=== PATIENT | female | born 1965 | race Caucasian/White ===

== ENCOUNTER 2017-03-01 19:17 | Emergency (ER) | payer OTHER ==
[2017-03-01 19:23] VITALS: BP 138/72; PULSE 58; TEMP 97.5; BMI 27.4
[2017-03-01] MEDS ORDERED: ONDANSETRON *ODT* 4 MG TABLET SL ONE (20:18)
[2017-03-01] MEDS ORDERED: ONDANSETRON *ODT* 4 MG TABLET ONE (20:19)
--- NOTE | 2017-03-01 20:24 | PDOC ---
History of Present Illness - General Chief Complaint: Redness To Affected Area Stated Complaint: BITE Time Seen by Provider: 03/01/17 19:51 History Source: Patient Exam Limitations: No Limitations - History of Present Illness Initial Comments: 03/01/17 20:18 51 yr female with history of SLE, seizures c/o 2 spider bites to left lower ankle noticed this am. pt states she vomited twice today feels nausea. no fever . Timing/Duration: reports: this morning Severity: Yes: mild Location: reports: extremities (left posterior ankle ) Past History - Past Medical History Allergies/Adverse Reactions: Allergies Allergy/AdvReac Type Severity Reaction Status Date / Time No Known Allergies Allergy Verified 03/01/17 19:20 Home Medications: Ambulatory Orders Pramipexole Di-HCl [Mirapex] 1 tab PO HS 12/21/16 Topiramate [Topamax] 75 mg PO BID 12/21/16 Ondansetron [Zofran Odt -] 4 mg SL TID PRN #12 od.tablet 03/01/17 Anemia: Yes (chronic) Cancer: Yes (cervical) Seizures: Yes (partial absence siezures) Other medical history: lupus, ankylosing spondylitis - Psycho/Social/Smoking Cessation Hx Suicidal Ideation: No Smoking History: Never smoked Have you smoked in the past 12 months: No Review of Systems - Review of Systems Able to Perform ROS?: Yes Is the patient limited Khmer proficient: No Constitutional: No: Symptoms Reported HEENTM: No: Symptoms Reported Respiratory: No: Symptoms reported Cardiac (ROS): No: Symptoms Reported ABD/GI: No: Symptoms Reported : No: Symptoms Reported Musculoskeletal: No: Symptoms Reported Integumentary: Yes: See HPI *Physical Exam - Vital Signs Last Vital Signs Temp Pulse Resp BP Pulse Ox 97.5 F L 58 L 18 138/72 99 03/01/17 19:20 03/01/17 19:20 03/01/17 19:20 03/01/17 19:20 03/01/17 19:20 - Physical Exam General Appearance: Yes: Nourished, Appropriately Dressed HEENT: positive: EOMI, NAHID Neck: negative: Tender Respiratory/Chest: positive: Lungs Clear, Normal Breath Sounds Cardiovascular: positive: Regular Rhythm, Regular Rate Musculoskeletal: positive: Normal Inspection Extremity: positive: Normal Capillary Refill, Normal Inspection, Normal Range of Motion Integumentary: positive: Normal Color, Dry, Warm, Other (left lower leg posterior ankle with 2 maculopapular raised 1cm in diameter with surrounding erythema, hard center, no drainagae.) Neurologic: positive: Fully Oriented, Alert, Normal Mood/Affect, Normal Response , Motor Strength 5/5 Medical Decision Making - Medical Decision Making 03/01/17 20:21 cc: spider bites nausea and vomit x2 no fever no chills no streaking will give zofran, cool compresses to the bite *DC/Admit/Observation/Transfer Diagnosis at time of Disposition: Spider bite allergy, current reaction Qualifiers: Encounter type: initial encounter Injury intent: undetermined intent Qualified Code(s): T63.304A - Toxic effect of unspecified spider venom, undetermined, initial encounter - Discharge Dispostion Disposition: HOME Condition at time of disposition: Good - Prescriptions Prescriptions: Ondansetron [Zofran Odt -] 4 mg SL TID PRN #12 od.tablet PRN Reason: Nausea And/Or Vomiting - Patient Instructions Additional Instructions: apply cool compresses every 2hrs for 15-20 minutes to the bites take zofran as directed for nausea or vomiting apply a topical benadryl cream to the bites with a topical hydrocortisone cream three times a day to help with swelling,. pain and itching follow with your doctor in 2-3 days for follow up
== END 2017-03-01 20:36 | disposition home or self-care (01) ==
LOC: JERFT 19:17
DX: T63.304A Toxic effect of unspecified spider venom, undetermined, initial encounter (principal); X58.XXXA Exposure to other specified factors, initial encounter; Y93.89 Activity, other specified; Y92.9 Unspecified place or not applicable; M32.9 Systemic lupus erythematosus, unspecified; Z85.41 Personal history of malignant neoplasm of cervix uteri
CPT/HCPCS: 99281-25

== ENCOUNTER 2017-09-02 17:40 | Emergency (ER) | payer OTHER ==
[2017-09-02 18:30] VITALS: BP 137/67; PULSE 56; TEMP 97.7; BMI 28.2
--- NOTE | 2017-09-02 19:10 | PDOC ---
History of Present Illness - General Chief Complaint: Seizure Stated Complaint: SEIZURE Time Seen by Provider: 09/02/17 18:30 - History of Present Illness Initial Comments: 09/02/17 19:44 The patient is a 51 year old female with a history of absence seizures, Lupus who presents for evaluation following a seizure. The patient reports that she has been experiencing nausea, vomiting, and diarrhea over the past 3-4 days with her vomiting resolving yesterday evening. She notes that she was found today following a seizure which she feels was longer than normal as she notes she "lost" 45 minutes of time. She notes that she normally experiences an aura before her seizures, but did not experience one today. She does note that she usually has seizures once a week as well. Otherwise she denies fevers, chills, SOB, chest pain, abdominal pain, or changes with urination. Past History - Past Medical History Allergies/Adverse Reactions: Allergies Allergy/AdvReac Type Severity Reaction Status Date / Time No Known Allergies Allergy Verified 09/02/17 17:58 Home Medications: Ambulatory Orders Pramipexole Di-HCl [Mirapex] 0.25 tab PO HS 12/21/16 Topiramate [Topamax] 100 mg PO BID 12/21/16 Omeprazole Magnesium [Prilosec Otc] 40 mg PO HS 09/02/17 Ondansetron HCl [Zofran] 4 mg PO TID PRN #21 tablet 09/02/17 levETIRAcetam [Keppra -] 500 mg PO BID 09/02/17 Anemia: Yes (chronic) Cancer: Yes (cervical) CVA: No COPD: No Seizures: Yes (partial absence siezures) - Suicide/Smoking/Psychosocial Hx Smoking History: Never smoked Have you smoked in the past 12 months: No Information on smoking cessation initiated: No Hx Alcohol Use: No Drug/Substance Use Hx: No Substance Use Type: None Review of Systems - Review of Systems Comments:: 09/02/17 19:47 Constitutional: No fevers, chills, fatigue, malaise HEENT: No Rhinorrhea, nasal congestion, visual changes Cardiovascular: No chest pain, syncope, palpitations, lightheadedness Respiratory: No Cough, SOB, Hemoptysis, Gastrointestinal: Nausea, vomiting, diarrhea. No Abdominal pain, Constipation, Melena Genitourinary: No Dysuria, Frequency, Urgency, Hesitancy, Hematuria, Flank pain Musculoskeletal: No Myalgia, arthralgia Skin: No rashes, itching, bruising, pallor Neurologic: Seizure. No Headache, Dizziness, Numbness, Weakness, or Tingling Psychiatric: No Hallucinations. No SI or HI *Physical Exam - Vital Signs Last Vital Signs Temp Pulse Resp BP Pulse Ox 97.7 F 56 L 18 137/67 99 09/02/17 17:46 09/02/17 17:46 09/02/17 17:46 09/02/17 17:46 09/02/17 17:46 ED Treatment Course - LABORATORY CBC & Chemistry Diagram: 09/02/17 19:18 09/02/17 19:18 Medical Decision Making - Medical Decision Making 09/02/17 19:48 The patient is a 51 year old female with a history of absence seizures, Lupus who presents for evaluation following a seizure. Given the patient's recent illness and vomiting, it is likely the patient had a break through seizure due to either viral illness or lack of medication due to her vomiting. However, given that this seizure appeared to be somewhat different from her norm, we discussed the case with Dr. Silva who is covering for the patient's neurologist Dr. Gilman who has provided recs and is comfortable with outpatient follow up should the patient's workup be negative. We will obtain a cbc, cmp, lipase to evaluate for other possible etiologies and treat the patient with iv fluids, 1g iv keppra, and zofran. We will continue to monitor and reassess. 09/02/17 20:12 CBC, cmp, lipase are unremarkable. The patient appears clinically well at this time and we are comfortable discharging home with neurology follow up. We discussed the results and the plan with the patient as well as return precautions and the patient voiced understanding and is agreeable with the plan. *DC/Admit/Observation/Transfer Diagnosis at time of Disposition: Seizure - Discharge Dispostion Disposition: HOME Condition at time of disposition: Good Admit: No - Prescriptions Prescriptions: Ondansetron HCl [Zofran] 4 mg PO TID PRN #21 tablet PRN Reason: Nausea - Referrals Referrals: Rai Gilman MD [Staff Physician] - - Patient Instructions Printed Discharge Instructions: DI for Seizure Disorder -- Adult Additional Instructions: Please return to the ER if you experience concerning or worsening symptoms including recurrent seizures, fevers, difficulty breathing, or worsening pain. You were seen for evaluation following a seizure. Your lab results are normal here in the ER. It is likely your seizure was break through due to your recent illness. Please continue to take your home medications and we have sent a prescription for an anti-nausea medication to your pharmacy. Please call to schedule a follow up appointment with your Neurologist within 1- 3 days to discuss further management of your symptoms. - Post Discharge Activity
[2017-09-02] MEDS ORDERED: ONDANSETRON 4 MG/2 ML VIAL IVPUSH ONE (19:16)
[2017-09-02] MEDS ORDERED: levETIRAcetam 500 MG/5 ML INJECTION VIAL IVPB ONE ×2 (19:16→19:20)
[2017-09-02] MEDS ORDERED: ONDANSETRON 4 MG/2 ML VIAL ONE (19:20)
[2017-09-02 19:39] LABS: BASO % 0.6 % (0-2.0); EOS % 1.6 % (0-4.5); HEMATOCRIT 42.4 % (32.4-45.2); HEMOGLOBIN 14.1 GM/dL (10.7-15.3); LYMPH % 34.2 % (8-40); MCH 29.6 pg (25.7-33.7); MCHC 33.2 g/dl (32.0-36.0); MEAN CELL VOLUME 89.2 fl (80-96); MEAN PLT VOLUME 8.1 fl (7.5-11.1); MONO % 7.5 % (3.8-10.2); NEUT % 56.1 % (42.8-82.8); PLATELET COUNT 278 K/MM3 (134-434); RBC 4.76 M/mm3 (3.60-5.2); RDW 14.4 % (11.6-15.6); WHITE BLOOD COUNT 6.8 K/mm3 (4.0-10.0)
--- NOTE | 2017-09-02 19:47 | PDOC ---
Attending Attestation - HPI HPI: 09/02/17 20:04 The patient is a 51 year old female, with a significant past medical history of absence seizures, lupus, who presents to the emergency department for evaluation of a seizure. The patient reports she normally experiences seizures approx. once per week. However, the patient reports that today the seizure she had was longer than usual and states she lost approx. 45 minutes of time. The patient reports the seizure was unwitnessed and she was found on the floor. The patient reports she did not have an aura preceding the seizure which she normally experiences. She denies recent fevers or chills. She denies recent chest pain or shortness of breath. Allergies: NKA Neurologist: Dr. Gilman Documentation prepared by Stefan Byrne, acting as medical scientific liaison for Calista Anne DO. - Physicial Exam PE: 09/02/17 20:05 Constitutional: Awake, alert, oriented. No acute distress. Head: Normocephalic. Atraumatic Eyes: PERRL. EOMI. Conjunctivae are not pale. ENT: Mucous membranes are moist and intact. Posterior pharynx without exudates or erythema. Uvula midline. Neck: Supple. Full ROM. No lymphadenopathy. Cardiovascular: +Bradycardia. Regular rhythm. S1, S2 regular. Distal pulses are 2+ and symmetric. Pulmonary/Chest: No evidence of respiratory distress. Clear to auscultation bilaterally No wheezing, rales or rhonchi. Abdominal: Soft and non-distended. There is no tenderness. No rebound, guarding or rigidity. No organomegaly. No palpable masses. Good bowel sounds. Back: No CVA tenderness. Musculoskeletal: No edema. No cyanosis. No clubbing. Full range of motion in all extremities. Nocalf tenderness. Radial/pedal pulses are intact and 2+ bilaterally Skin: Skin is warm and dry. No petechiae. No purpura. Neurological: Alert and oriented to person, place, and time. Cranial nerves II -XII are grossly intact. 5/5 strength and sensation is intact. Normal speech. Psychiatric: Good eye contact. Normal interaction, affect and behavior. <Stefan Byrne - Last Filed: 09/02/17 20:04> - Resident Resident Name: Abdi Barahona - ED Attending Attestation I have performed the following: I have examined & evaluated the patient, The case was reviewed & discussed with the resident, I agree w/resident's findings & plan, Exceptions are as noted - Medical Decision Making 09/02/17 19:44 I, Dr. Calista Anne, DO, attest that this document has been prepared under my direction and personally reviewed by me in its entirety. I further attest, that it accurately reflects all work, treatment, procedures and medical decision -making performed by me. a/p: 51yo female with known seizure activity with seizure at home -recent viral gastroenteritis - n/v since wednesday -suspect decreased absorption of topamax and keppra -pt neuro intact, at baseline -follows with Dr. Gilman -topamax for migraines, keppra for seizures -will dose meds in ED -nausea control -will discuss with neuro -labs -ivf hydration -will monitor and reassess 09/02/17 20:31 pt feeling better no seizures in the ED no vomiting will give zofran Rx for home has appt with alyssa discussed all reasons to return to the ED labs reviewed and stable <Calista Anne - Last Filed: 09/02/17 20:34> Heart Score/ECG Review - ECG Intrepretation Comment:: 09/02/17 19:46 sinus jorge at 53, L axis deviation, nl interval, no acute st/t wave changes <Calista Anne - Last Filed: 09/02/17 20:34>
[2017-09-02 20:02] LABS: ALBUMIN 3.5 g/dl (3.4-5.0); ALK PHOS 80 U/L (45-117); ANION GAP 7 (8-16); BILIRUBIN,TOTAL 0.4 mg/dL (0.2-1.0); BLOOD UREA NITROGEN 11 mg/dL (7-18); CALCIUM 8.7 mg/dL (8.5-10.1); CHLORIDE 109 mmol/L (98-107); CO2 26 mmol/L (21-32); CREATININE 0.5 mg/dL (0.55-1.02); GLUCOSE,RANDOM 81 mg/dL (74-106); LIPASE 91 U/L (73-393); POTASSIUM 4.2 mmol/L (3.5-5.1); SGOT/AST 15 U/L (15-37); SGPT/ALT 21 U/L (12-78); SODIUM 142 mmol/L (136-145); TOT PROT 6.5 g/dl (6.4-8.2)
--- NOTE | 2017-09-04 12:17 | EKG ---
Test Reason : Blood Pressure : / mmHG Vent. Rate : 053 BPM Atrial Rate : 053 BPM P-R Int : 160 ms QRS Dur : 086 ms QT Int : 458 ms P-R-T Axes : 040 -31 011 degrees QTc Int : 429 ms SINUS BRADYCARDIA LEFT AXIS DEVIATION ABNORMAL ECG WHEN COMPARED WITH ECG OF 14-APR-2006 09:51, NO SIGNIFICANT CHANGE WAS FOUND Confirmed by ROOPA BACON MD ([id number]) on 09/04/2017 12:17:45 PM Referred By: Confirmed By:ROOPA BACON MD
== END 2017-09-02 20:48 | disposition home or self-care (01) ==
LOC: JER 17:40
PROC: 3E033GC Introduction of Other Therapeutic Substance into Peripheral Vein, Percutaneous Approach (ICD-10-PCS; principal; 2017-09-02)
DX: G40.A09 Absence epileptic syndrome, not intractable, without status epilepticus (principal); G40.109 Localization-related (focal) (partial) symptomatic epilepsy and epileptic syndromes with simple partial seizures, not intractable, without status epilepticus; M32.9 Systemic lupus erythematosus, unspecified
CPT/HCPCS: 36415; 80053; 83690; 85025; 93005; 93010; 99283-25

== ENCOUNTER 2017-09-05 12:26 | Emergency (ER) | payer OTHER ==
[2017-09-05 12:38] VITALS: BP 124/70; PULSE 99; TEMP 98.4; BMI 28.2
--- NOTE | 2017-09-05 15:08 | PDOC ---
History of Present Illness - General Chief Complaint: Sore Throat Stated Complaint: SORE THROAT/cough Time Seen by Provider: 09/05/17 14:57 History Source: Patient Exam Limitations: No Limitations - History of Present Illness Initial Comments: 09/05/17 15:03 Patient is here with complaints of bronchitis. Was seen here 2 days ago for seizure status post gastroenteritis and dehydration. States has been well since that time however woke up this morning with a moist cough, no fevers, and laryngitis. Timing/Duration: unsure Severity: mild Associated Symptoms: reports: denies symptoms, cough, loss of appetite, malaise. denies: fever/chills, headaches, nausea/vomiting Past History - Travel Traveled outside of the country in the last 30 days: No Close contact w/someone who was outside of country & ill: No - Past Medical History Allergies/Adverse Reactions: Allergies Allergy/AdvReac Type Severity Reaction Status Date / Time No Known Allergies Allergy Verified 09/05/17 12:39 Home Medications: Ambulatory Orders Pramipexole Di-HCl [Mirapex] 0.25 tab PO HS 12/21/16 Topiramate [Topamax] 100 mg PO BID 12/21/16 Omeprazole Magnesium [Prilosec Otc] 40 mg PO HS 09/02/17 levETIRAcetam [Keppra -] 500 mg PO BID 09/02/17 Azithromycin [Zithromax -] 250 mg PO UTDICT #6 tab 09/05/17 Anemia: Yes (chronic) Cancer: Yes (cervical) CVA: No COPD: No DVT: No Seizures: Yes (partial absence siezures) - Suicide/Smoking/Psychosocial Hx Smoking History: Never smoked Have you smoked in the past 12 months: No Information on smoking cessation initiated: No Hx Alcohol Use: No Drug/Substance Use Hx: No Substance Use Type: None Review of Systems - Review of Systems Able to Perform ROS?: Yes Is the patient limited Ethiopian proficient: Yes Constitutional: Yes: Symptoms Reported, See HPI, Malaise. No: Fever HEENTM: Yes: Symptoms Reported, Nose Congestion Respiratory: Yes: Symptoms reported, See HPI, Cough. No: Wheezing Cardiac (ROS): No: Symptoms Reported Integumentary: Yes: See HPI. No: Symptoms Reported Neurological: Yes: See HPI. No: Symptoms reported All Other Systems: Reviewed and Negative *Physical Exam - Vital Signs Last Vital Signs Temp Pulse Resp BP Pulse Ox 98.4 F 99 H 18 124/70 100 09/05/17 12:30 09/05/17 12:30 09/05/17 12:30 09/05/17 12:30 09/05/17 12:30 - Physical Exam General Appearance: Yes: Nourished, Appropriately Dressed, Apparent Distress, Mild Distress HEENT: positive: TMs Normal (congested), Pharynx Normal, Nasal Congestion, Rhinorrhea. negative: Tonsillar Exudate Neck: positive: Supple. negative: Tender, Lymphadenopathy (R), Lymphadenopathy (L) Respiratory/Chest: positive: Lungs Clear, Normal Breath Sounds. negative: Rhonchi, Wheezing Extremity: positive: Normal Capillary Refill, Normal Inspection, Normal Range of Motion Integumentary: positive: Dry, Warm, Pale Neurologic: positive: director of culture II-XII NML intact, Fully Oriented, Alert, Normal Mood/ Affect, Normal Response, Motor Strength /5 Medical Decision Making - Medical Decision Making 09/05/17 15:08 Laryngitis, probable viral in origin however due to patient's immunosuppression with her lupus, and seizure disorder will give a prophylactic Z-Balta and instructions to initiate/watch and wait for worsened in symptoms, high fevers, purulent drainage from nose or cough. *DC/Admit/Observation/Transfer Diagnosis at time of Disposition: Laryngitis - Discharge Dispostion Disposition: HOME Condition at time of disposition: Stable Admit: No - Referrals - Patient Instructions Printed Discharge Instructions: DI for Laryngitis Additional Instructions: Rest, drink lots of fluids: Teas, water, soups, Pedialyte Saltwater gargles Steamy showers/seem to face break up mucus Avoid contact with others until fevers and cough resolved Lots of handwashing and good hygiene Continue [id number] medications for symptomatic relief Tylenol or Motrin for fever and pain Followup with private physician in one to 2 days as needed Return to emergency department for worsened symptoms, fevers, dehydration - Post Discharge Activity Forms/Work/School Notes: Back to Work
== END 2017-09-05 15:13 | disposition home or self-care (01) ==
LOC: JERFT 12:26
DX: J04.0 Acute laryngitis (principal); D64.9 Anemia, unspecified; Z85.41 Personal history of malignant neoplasm of cervix uteri
CPT/HCPCS: 99281-25

== ENCOUNTER 2018-06-02 09:08 | Emergency (ER) | payer OTHER ==
[2018-06-02 09:27] VITALS: BP 152/61; PULSE 66; TEMP 97.5; BMI 27.4
[2018-06-02] MEDS ORDERED: SILVER SULFADIAZINE 1% TOP CREAM 50 GM JAR TP ONE ×2 (10:21→10:27)
[2018-06-02] MEDS ORDERED: DIPHTH,PERTUSS(ACELL),TET 0.5 ML DISP.SYRIN IM ONE (10:27)
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
== END 2018-06-02 10:46 | disposition home or self-care (01) ==
LOC: JERFT 09:08
PROC: 3E0234Z Introduction of Serum, Toxoid and Vaccine into Muscle, Percutaneous Approach (ICD-10-PCS; principal; 2018-06-02)
DX: T25.221A Burn of second degree of right foot, initial encounter (principal); X17.XXXA Contact with hot engines, machinery and tools, initial encounter; Y93.G1 Activity, food preparation and clean up; Y92.009 Unspecified place in unspecified non-institutional (private) residence as the place of occurrence of the external cause; F41.9 Anxiety disorder, unspecified; D64.89 Other specified anemias; Z85.41 Personal history of malignant neoplasm of cervix uteri
CPT/HCPCS: 90715; 99281-25

== ENCOUNTER 2018-08-03 13:48 | Emergency (ER) | payer SELFPAY ==
[2018-08-03] MEDS ORDERED: IBUPROFEN 400 MG TABLET (FP) PO ONE ×2 (13:59→14:08)
--- NOTE | 2018-08-03 13:59 | PDOC ---
Rapid Medical Evaluation Medical Evaluation: Allergies Allergy/AdvReac Type Severity Reaction Status Date / Time No Known Allergies Allergy Verified 10/29/17 13:22 I have performed a brief in-person evaluation of this patient. The patient presents with a chief complaint of: S/P tripped down 1 step of stair , twisting R ankle Pertinent physical exam findings: Mild swelling and TTP along lateral aspect of R foot I have ordered the following: Xray, Motrin The patient will proceed to the ED for further evaluation. 08/03/18 13:56 Discharge Disposition - Discharge Dispostion Condition at time of disposition: Stable - Referrals - Patient Instructions - Post Discharge Activity
[2018-08-03 14:09] VITALS: BP 147/87; PULSE 68; TEMP 97.7; BMI 30.9
--- NOTE | 2018-08-03 14:35 | PDOC ---
History of Present Illness - General Chief Complaint: Injury Stated Complaint: Injury Time Seen by Provider: 08/03/18 14:06 - History of Present Illness Initial Comments: 08/03/18 14:31 52-year-old female presents for evaluation of right foot pain. She describes an inversion supination-type injury while coming down the steps. She points to the superior lateral aspect of the right foot as the area of her discomfort. Past History - Past Medical History Allergies/Adverse Reactions: Allergies Allergy/AdvReac Type Severity Reaction Status Date / Time No Known Allergies Allergy Verified 10/29/17 13:22 Home Medications: Ambulatory Orders Pramipexole Di-HCl [Mirapex] 0.25 tab PO HS 12/21/16 Topiramate [Topamax] 100 mg PO BID 12/21/16 Omeprazole Magnesium [Prilosec Otc] 40 mg PO HS 09/02/17 levETIRAcetam [Keppra -] 500 mg PO BID 09/02/17 Paroxetine HCl [Paxil -] 10 mg PO DAILY 10/29/17 Collagenase Clostridium Hist. [Santyl] 1 applic TP DAILY #90 oint...g. 06/17/18 Anemia: Yes (chronic) Cancer: Yes (cervical) CVA: No COPD: No DVT: No Psychiatric Problems: Yes (anxiety, swallowing problem) Seizures: Yes (partial absence siezures) - Immunization History Immunization Up to Date: Yes - Suicide/Smoking/Psychosocial Hx Smoking History: Never smoked Have you smoked in the past 12 months: No Information on smoking cessation initiated: No Hx Alcohol Use: No Drug/Substance Use Hx: No Substance Use Type: None Review of Systems - Review of Systems Musculoskeletal: Yes: Joint Pain *Physical Exam - Vital Signs Last Vital Signs Temp Pulse Resp BP Pulse Ox 97.7 F 68 16 147/87 98 08/03/18 13:56 08/03/18 13:56 08/03/18 13:56 08/03/18 13:56 08/03/18 13:56 - Physical Exam Comments: 08/03/18 14:32 Right foot skin color and temperature are normal. There is mild swelling about the superior lateral aspect of the foot. There is no tenderness about the knee proximal fibula or along its distal coarse. No tenderness about the medial lateral malleolus mild tenderness about the lateral aspect of navicular no tenderness about the fifth metatarsal. No gross sensorimotor deficits full strength and range of motion of the ankle and toes. NVID Moderate Sedation - Procedure Monitoring Vital Signs: Procedure Monitoring Vital Signs Temperature 97.7 F 08/03/18 13:56 Pulse Rate 68 08/03/18 13:56 Respiratory Rate 16 08/03/18 13:56 Blood Pressure 147/87 08/03/18 13:56 O2 Sat by Pulse Oximetry (%) 98 08/03/18 13:56 ED Treatment Course - Medications Given in the ED: ED Medications Discontinued Medications Generic Name Dose Route Start Last Admin Trade Name Freq PRN Reason Stop Dose Admin Ibuprofen 800 mg 08/03/18 13:59 08/03/18 14:10 Motrin - PO 08/03/18 14:00 800 mg ONCE ONE Administration Medical Decision Making - Medical Decision Making 08/03/18 14:35 There appears to be a nondisplaced fracture at the lateral aspect of the navicular *DC/Admit/Observation/Transfer Diagnosis at time of Disposition: Navicular fracture, foot - Discharge Dispostion Disposition: HOME Condition at time of disposition: Stable Decision to Admit order: No - Referrals Referrals: Kush Chávez MD [Staff Physician] - - Patient Instructions Printed Discharge Instructions: Foot Fracture, DI for Foot Fracture Additional Instructions: Remain nonweightbearing with use of the Reynolds wrap and crutches and postop shoe. Return to the emergency room should symptoms worsen or go unresolved. Follow-up with orthopedic surgery in 2-3 days for further evaluation and treatment options. Tylenol as directed for pain. - Post Discharge Activity
== END 2018-08-03 14:48 | disposition home or self-care (01) ==
LOC: JERFT 13:48
DX: S92.251A Displaced fracture of navicular [scaphoid] of right foot, initial encounter for closed fracture (principal); W10.9XXA Fall (on) (from) unspecified stairs and steps, initial encounter; Y93.89 Activity, other specified; Y92.89 Other specified places as the place of occurrence of the external cause
CPT/HCPCS: 73610-TC-RT-FY; 73630-TC-RT-FY; 99281-25

== ENCOUNTER 2021-06-06 04:19 | Day surgery (SDC) | payer OTHER ==
[2021-06-04 13:41] VITALS: BMI 30.9
[2021-06-06] MEDS ORDERED: BUPIVACAINE HCL/PF 0.25% (2.5MG/ML) 10 ML VIAL ONE (07:19)
[2021-06-06] MEDS ORDERED: LIDOCAINE HCL/PF 1% SDV 5ML VIAL ONE (07:19)
[2021-06-06] MEDS ORDERED: DEXAMETHASONE SOD PHOSPHATE 10 MG/1 ML VIAL ONE (07:19)
[2021-06-06] MEDS ORDERED: BUPIVACAINE HCL/PF 0.5% (5MG/ML) 10 ML VIAL ONE (07:19)
[2021-06-06] MEDS ORDERED: BUPIVACAINE 0.75% IN DEXTROSE/PF 2ML AMPULE NR ONE (13:20)
[2021-06-06] MEDS ORDERED: LIDOCAINE HCL 1%, 10 MG/ML (20ML VIAL) NR ONE (13:20)
[2021-06-06] MEDS ORDERED: IOHEXOL 180 MG/1 ML ML IJ ONE (13:20)
[2021-06-06 14:12] VITALS: BP 143/69; PULSE 62; TEMP 97.7
== END 2021-06-06 14:05 | disposition home or self-care (01) ==
LOC: JASU-SURG 04:19
PROVIDERS: ATTEND Pain Medicine Pain Medicine
PROC: BR16YZZ Fluoroscopy of Lumbar Facet Joint(s) using Other Contrast (ICD-10-PCS; 2021-06-06)
PROC: 3E0T3BZ Introduction of Anesthetic Agent into Peripheral Nerves and Plexi, Percutaneous Approach (ICD-10-PCS; principal; 2021-06-06 14:00)
DX: M47.816 Spondylosis without myelopathy or radiculopathy, lumbar region (principal)
CPT/HCPCS: 76000-TC-FY; J1100

== ENCOUNTER 2021-09-02 04:31 | Day surgery (SDC) | payer OTHER ==
[2021-08-28 16:54] VITALS: BMI 30.9
[~2021-09-02 04:31] MED LIST: BUPIVACAINE HCL/PF 0.75% 10 ML VIAL NR ONE; IOHEXOL 180 MG/1 ML ML IJ ONE; LIDOCAINE 1% P/F 10 MG/ML VIAL INF ONE
[2021-09-02] MEDS ORDERED: LIDOCAINE 1% P/F 10 MG/ML VIAL INF ONE (09:12)
[2021-09-02] MEDS ORDERED: IOHEXOL 180 MG/1 ML ML IJ ONE (09:15)
[2021-09-02] MEDS ORDERED: BUPIVACAINE HCL/PF 0.75% 10 ML VIAL NR ONE (09:17)
[2021-09-02 10:02] VITALS: BP 158/83; PULSE 80; TEMP 97.3
== END 2021-09-02 10:11 | disposition home or self-care (01) ==
LOC: JASU-SURG 04:31
PROVIDERS: ATTEND Pain Medicine Pain Medicine
PROC: BR16YZZ Fluoroscopy of Lumbar Facet Joint(s) using Other Contrast (ICD-10-PCS; 2021-09-02)
PROC: 3E0T3BZ Introduction of Anesthetic Agent into Peripheral Nerves and Plexi, Percutaneous Approach (ICD-10-PCS; principal; 2021-09-02 08:30)
DX: M47.816 Spondylosis without myelopathy or radiculopathy, lumbar region (principal)
CPT/HCPCS: 76000-TC-FY

== ENCOUNTER 2021-09-25 04:19 | Day surgery (SDC) | payer OTHER ==
[2021-09-22 15:21] VITALS: BMI 34.0
[2021-09-25 10:03] VITALS: TEMP 97.6
[2021-09-25 11:12] VITALS: BP 140/88; PULSE 79
== END 2021-09-25 10:59 | disposition home or self-care (01) ==
LOC: JASU-ENDO 04:19
PROVIDERS: ATTEND Internal Medicine Gastroenterology
PROC: 0DB68ZX Excision of Stomach, Via Natural or Artificial Opening Endoscopic, Diagnostic (ICD-10-PCS; 2021-09-25)
PROC: 0DB28ZX Excision of Middle Esophagus, Via Natural or Artificial Opening Endoscopic, Diagnostic (ICD-10-PCS; 2021-09-25)
PROC: 0DB38ZX Excision of Lower Esophagus, Via Natural or Artificial Opening Endoscopic, Diagnostic (ICD-10-PCS; principal; 2021-09-25 09:30)
DX: K29.50 Unspecified chronic gastritis without bleeding (principal); K21.00 Gastro-esophageal reflux disease with esophagitis, without bleeding; K31.7 Polyp of stomach and duodenum
CPT/HCPCS: 88305-TC; 88342-TC

== ENCOUNTER 2021-10-24 04:14 | Day surgery (SDC) | payer OTHER ==
[2021-10-22 14:13] VITALS: BMI 32.9
[2021-10-24] MEDS ORDERED: LIDOCAINE HCL/PF 1% SDV 5ML VIAL ONE (07:11)
[2021-10-24] MEDS ORDERED: BUPIVACAINE HCL/PF 0.75% 10 ML VIAL ONE (07:11)
[2021-10-24] MEDS ORDERED: LIDOCAINE HCL/PF 2% SDV 5ML VIAL ONE ×2 (09:26→09:28)
[2021-10-24] MEDS ORDERED: LIDOCAINE HCL 1% PRESERVATIVE FREE - 30ML VIAL IJ ONE (09:29)
[2021-10-24] MEDS ORDERED: IOHEXOL 180 MG/1 ML ML IJ ONE ×2 (09:30→09:34)
[2021-10-24] MEDS ORDERED: BUPIVACAINE HCL/PF 0.75% 10 ML VIAL NR ONE ×2 (09:30→09:36)
[2021-10-24] MEDS ORDERED: LIDOCAINE HCL 2% (50ML VIAL) NR ONE ×2 (09:31→09:52)
[2021-10-24] MEDS ORDERED: DEXAMETHASONE SOD PHOSPHATE 10 MG/1 ML VIAL IVPUSH ONE ×2 (09:31→09:36)
[2021-10-24 13:24] VITALS: TEMP 98.9
[2021-10-24 13:26] VITALS: BP 130/72; PULSE 67
== END 2021-10-24 10:36 | disposition home or self-care (01) ==
LOC: JASU-SURG 04:14
PROVIDERS: ATTEND Pain Medicine Pain Medicine
PROC: 3E0T3TZ Introduction of Destructive Agent into Peripheral Nerves and Plexi, Percutaneous Approach (ICD-10-PCS; principal; 2021-10-24 09:00)
PROC: BR16YZZ Fluoroscopy of Lumbar Facet Joint(s) using Other Contrast (ICD-10-PCS; 2021-10-24 09:00)
DX: M47.816 Spondylosis without myelopathy or radiculopathy, lumbar region (principal)
CPT/HCPCS: 76000-TC-FY; J1100

== ENCOUNTER 2021-11-25 04:35 | Day surgery (SDC) | payer OTHER ==
[2021-11-20 12:43] VITALS: BMI 32.9
[2021-11-25] MEDS ORDERED: LIDOCAINE HCL 1% PRESERVATIVE FREE - 30ML VIAL IJ ONE (13:25)
[2021-11-25] MEDS ORDERED: LIDOCAINE HCL/PF 2% SDV 5ML VIAL SNB ONE (13:26)
[2021-11-25] MEDS ORDERED: DEXAMETHASONE SOD PHOSPHATE 4 MG/1 ML VIAL NR ONE (13:27)
[2021-11-25] MEDS ORDERED: BUPIVACAINE HCL/PF 0.75% 10 ML VIAL NR ONE (13:27)
[2021-11-25] MEDS ORDERED: IOHEXOL 180 MG/1 ML ML IJ ONE (13:28)
[2021-11-25 14:19] VITALS: TEMP 97
[2021-11-25 14:27] VITALS: BP 140/70; PULSE 55
== END 2021-11-25 14:10 | disposition home or self-care (01) ==
LOC: JASU-SURG 04:35
PROVIDERS: ATTEND Pain Medicine Pain Medicine
PROC: BR16YZZ Fluoroscopy of Lumbar Facet Joint(s) using Other Contrast (ICD-10-PCS; 2021-11-25)
PROC: 3E0T3TZ Introduction of Destructive Agent into Peripheral Nerves and Plexi, Percutaneous Approach (ICD-10-PCS; principal; 2021-11-25 14:00)
DX: M47.816 Spondylosis without myelopathy or radiculopathy, lumbar region (principal)
CPT/HCPCS: 76000-TC-FY

== ENCOUNTER 2021-12-11 04:18 | Day surgery (SDC) | payer OTHER ==
[2021-12-08 14:49] VITALS: BMI 32.9
[2021-12-11 09:04] VITALS: TEMP 97
[2021-12-11 09:48] VITALS: BP 134/68; PULSE 50
== END 2021-12-11 10:00 | disposition home or self-care (01) ==
LOC: JASU-ENDO 04:18
PROVIDERS: ATTEND Internal Medicine Gastroenterology
PROC: 0DBN8ZX Excision of Sigmoid Colon, Via Natural or Artificial Opening Endoscopic, Diagnostic (ICD-10-PCS; principal; 2021-12-11 08:00)
DX: Z12.11 Encounter for screening for malignant neoplasm of colon (principal); Z80.0 Family history of malignant neoplasm of digestive organs; D12.7 Benign neoplasm of rectosigmoid junction; K64.8 Other hemorrhoids
CPT/HCPCS: 88305-TC

== ENCOUNTER 2022-04-22 10:25 | Day surgery (SDC) | payer OTHER ==
[2022-04-20 18:46] VITALS: BMI 32.5
[2022-04-22] MEDS ORDERED: MIDAZOLAM HCL 2 MG/2 ML SINGLE DOSE VIAL ONE (12:12)
[2022-04-22] MEDS ORDERED: ROPIVACAINE HCL 0.5% 30ML VIAL ONE (12:13)
[2022-04-22] MEDS ORDERED: LIDOCAINE HCL/PF 2% SDV 5ML VIAL ONE (12:34)
[2022-04-22] MEDS ORDERED: ceFAZolin SODIUM 1 GM VIAL ONE (12:35)
[2022-04-22] MEDS ORDERED: DEXAMETHASONE SOD PHOSPHATE 4 MG/1 ML VIAL ONE (12:44)
[2022-04-22] MEDS ORDERED: ONDANSETRON 4 MG/2 ML VIAL ONE (12:44)
[2022-04-22] MEDS ORDERED: oxyCODONE HCL 5 MG TABLET PO PRN ×2 (13:05)
[2022-04-22] MEDS ORDERED: ACETAMINOPHEN 500 MG TABLET (FP) PO PRN (13:05)
[2022-04-22] MEDS ORDERED: LACTATED RINGERS SOLUTION 1,000 ML IV SCH (13:15)
[2022-04-22] MEDS ORDERED: FENTANYL CITRATE/PF 50 MCG/ML VIAL ONE (13:51)
[2022-04-22 15:12] VITALS: BP 144/80; PULSE 72; RESP 17; TEMP 97.6
== END 2022-04-22 15:13 | disposition home or self-care (01) ==
LOC: FASU 10:25
PROVIDERS: ATTEND Orthopaedic Surgery Hand Surgery
PROC: 0RQS0ZZ Repair Right Carpometacarpal Joint, Open Approach (ICD-10-PCS; principal; 2022-04-22 12:47)
DX: M18.11 Unilateral primary osteoarthritis of first carpometacarpal joint, right hand (principal)
CPT/HCPCS: 94760

== ENCOUNTER 2022-10-23 04:28 | Day surgery (SDC) | payer OTHER ==
[2022-10-21 14:47] VITALS: BMI 32.5
[~2022-10-23 04:28] MED LIST changes: -BUPIVACAINE HCL/PF 0.75% 10 ML VIAL NR ONE; -IOHEXOL 180 MG/1 ML ML IJ ONE; -LIDOCAINE 1% P/F 10 MG/ML VIAL INF ONE; +LIDOCAINE HCL 1%, 10 MG/ML (50 mL VIAL) NR ONE; +ceFAZolin SODIUM 1 GM VIAL IVPB ONE
[2022-10-23] MEDS ORDERED: PROPOFOL 20 ML ONE (07:10)
[2022-10-23] MEDS ORDERED: KETAMINE HCL 500 MG/10 ML VIAL ONE (07:10)
[2022-10-23] MEDS ORDERED: MIDAZOLAM HCL 2 MG/2 ML SINGLE DOSE VIAL ONE (07:10)
[2022-10-23] MEDS ORDERED: LIDOCAINE HCL 1%, 10 MG/ML (10ML VIAL) MDV ONE (07:25)
[2022-10-23] MEDS ORDERED: BUPIVACAINE HCL/PF 0.5% (5MG/ML) 10 ML VIAL ONE (07:26)
[2022-10-23] MEDS ORDERED: ceFAZolin SODIUM 1 GM VIAL IVPB ONE (07:42)
[2022-10-23] MEDS ORDERED: LIDOCAINE HCL 1%, 10 MG/ML (50 mL VIAL) INF ONE (07:43)
[2022-10-23] MEDS ORDERED: BUPIVACAINE HCL/PF 0.5% (5MG/ML) 10 ML VIAL IJ ONE (07:43)
[2022-10-23] MEDS ORDERED: GENTAMICIN SO4 80 MG/2 ML VIAL IVPB ONE (07:50)
[2022-10-23] MEDS ORDERED: GENTAMICIN SO4 80 MG/2 ML VIAL ONE (07:57)
[2022-10-23 08:24] VITALS: RESP 20
[2022-10-23 12:16] VITALS: BP 147/65; PULSE 75; TEMP 98
== END 2022-10-23 10:50 | disposition home or self-care (01) ==
LOC: JASU-SURG 04:28
PROVIDERS: ATTEND Podiatrist
PROC: 0QBQ0ZZ Excision of Right Toe Phalanx, Open Approach (ICD-10-PCS; 2022-10-23)
PROC: 0HDRXZZ Extraction of Toe Nail, External Approach (ICD-10-PCS; principal; 2022-10-23 07:30)
DX: M89.8X7 Other specified disorders of bone, ankle and foot (principal); L60.0 Ingrowing nail; M77.51 Other enthesopathy of right foot and ankle
CPT/HCPCS: 73630-TC-RT-FY; 88304-TC; 88305-TC; 88311-TC; 88312-TC

== ENCOUNTER 2023-05-06 14:22 | Emergency (ER) | payer OTHER ==
[2023-05-06 14:41] VITALS: BMI 32.5
[2023-05-06 15:55] LABS: BASO % 0.8 % (0-2.0); EOS % 1.2 % (0-4.5); HEMATOCRIT 38.8 % (32.4-45.2); HEMOGLOBIN 13.3 GM/dL (10.7-15.3); MCH 29.8 pg (25.7-33.7); MCHC 34.4 g/dl (32.0-36.0); MEAN CELL VOLUME 86.5 fl (80-96); MEAN PLT VOLUME 7.4 fl (7.5-11.1); MONO % 8.7 % (3.8-10.2); NEUT % 46.3 % (42.8-82.8); PLATELET COUNT 329 10^3/uL (134-434); RBC 4.48 M/mm3 (3.60-5.2); WHITE BLOOD COUNT 6.6 K/mm3 (4.0-10.0)
[2023-05-06 16:19] LABS: POTASSIUM 4.1 mmol/L (3.5-5.1)
[2023-05-06 16:21] LABS: CALCIUM 9.1 mg/dL (8.5-10.1)
[2023-05-06 16:22] LABS: ALBUMIN 3.6 g/dl (3.4-5.0); BLOOD UREA NITROGEN 14.4 mg/dL (7-18)
[2023-05-06 16:25] LABS: CREATININE 0.7 mg/dL (0.55-1.3)
[2023-05-06 16:26] LABS: BILIRUBIN,TOTAL 0.4 mg/dL (0.2-1)
[2023-05-06 17:08] VITALS: BP 124/72; PULSE 80; RESP 20; TEMP 98
== END 2023-05-06 17:08 | disposition home or self-care (01) ==
LOC: JER 14:22
DX: L03.031 Cellulitis of right toe (principal); M79.674 Pain in right toe(s); J00 Acute nasopharyngitis [common cold]; L53.9 Erythematous condition, unspecified
CPT/HCPCS: 36415; 73630-TC-RT-FY; 80053; 85025; 99284-25

== ENCOUNTER 2023-06-15 05:17 | Day surgery (SDC) | payer OTHER ==
[2023-06-14 15:34] VITALS: BMI 32.5
[2023-06-15] MEDS ORDERED: LIDOCAINE HCL/PF 1% SDV 5ML VIAL ONE (07:20)
[2023-06-15] MEDS ORDERED: LIDOCAINE HCL/PF 2% SDV 5ML VIAL ONE (07:20)
[2023-06-15] MEDS ORDERED: BUPIVACAINE HCL/PF 0.75% 10 ML VIAL ONE (07:20)
[2023-06-15] MEDS ORDERED: DEXAMETHASONE SOD PHOSPHATE 10 MG/1 ML VIAL ONE (07:20)
[2023-06-15] MEDS ORDERED: DEXAMETHASONE SOD PHOSPHATE 10 MG/1 ML VIAL IVPUSH ONE (10:25)
[2023-06-15] MEDS ORDERED: LIDOCAINE HCL 1% PRESERVATIVE FREE - 30ML VIAL IJ ONE (10:25)
[2023-06-15] MEDS ORDERED: LIDOCAINE HCL/PF 2% SDV 5ML VIAL INF ONE (10:25)
[2023-06-15] MEDS ORDERED: BUPIVACAINE HCL/PF 0.75% 10 ML VIAL NR ONE (10:25)
[2023-06-15 11:20] VITALS: BP 130/80; PULSE 72; RESP 18; TEMP 97
[2023-06-15] MEDS ORDERED: ACETAMINOPHEN 500 MG TABLET (FP) PO PRN (17:36)
== END 2023-06-15 11:27 | disposition home or self-care (01) ==
LOC: JASU-SURG 05:17
PROVIDERS: ATTEND Pain Medicine Pain Medicine
PROC: 015B3ZZ Destruction of Lumbar Nerve, Percutaneous Approach (ICD-10-PCS; principal; 2023-06-15 10:30)
DX: M47.816 Spondylosis without myelopathy or radiculopathy, lumbar region (principal)
CPT/HCPCS: 76000-TC-FY; J1100

== ENCOUNTER 2023-07-27 04:36 | Day surgery (SDC) | payer OTHER ==
[2023-07-13 16:12] VITALS: BMI 32.5
[~2023-07-27 04:36] MED LIST changes: +ACETAMINOPHEN 500 MG TABLET (FP) PO PRN; -LIDOCAINE HCL 1%, 10 MG/ML (50 mL VIAL) NR ONE; -ceFAZolin SODIUM 1 GM VIAL IVPB ONE
[2023-07-27] MEDS ORDERED: TRIAMCINOLONE ACET 40MG/1ML VIAL ONE (07:22)
[2023-07-27] MEDS ORDERED: BUPIVACAINE HCL/PF 0.5% (5MG/ML) 10 ML VIAL ONE (07:22)
[2023-07-27] MEDS ORDERED: LIDOCAINE HCL/PF 1% SDV 5ML VIAL ONE (07:22)
[2023-07-27] MEDS ORDERED: ACETAMINOPHEN 500 MG TABLET (FP) PO PRN (11:38)
[2023-07-27] MEDS ORDERED: IOHEXOL 180 MG/1 ML ML IJ ONE (11:55)
[2023-07-27] MEDS ORDERED: TRIAMCINOLONE ACET 40MG/1ML VIAL IM ONE (11:55)
[2023-07-27] MEDS ORDERED: BUPIVACAINE HCL/PF 2.5 MG/ML - 30 ML VIAL IJ ONE (11:55)
[2023-07-27] MEDS ORDERED: LIDOCAINE 1% P/F 10 MG/ML VIAL INF ONE (11:55)
[2023-07-27 15:29] VITALS: BP 137/71; PULSE 55; RESP 18; TEMP 97.8
== END 2023-07-27 12:18 | disposition home or self-care (01) ==
LOC: JASU-SURG 04:36
PROVIDERS: ATTEND Pain Medicine Pain Medicine
PROC: 3E0U3BZ Introduction of Anesthetic Agent into Joints, Percutaneous Approach (ICD-10-PCS; 2023-07-27)
PROC: 3E0U33Z Introduction of Anti-inflammatory into Joints, Percutaneous Approach (ICD-10-PCS; principal; 2023-07-27 10:45)
DX: M16.11 Unilateral primary osteoarthritis, right hip (principal)
CPT/HCPCS: 76000-TC-FY

== ENCOUNTER 2024-03-07 06:47 | Day surgery (SDC) | payer OTHER ==
[2024-03-03 09:23] VITALS: BMI 33.5
[2024-03-07] MEDS ORDERED: BUPIVACAINE HCL/PF 0.25% (2.5MG/ML) 10 ML VIAL ONE (07:36)
[2024-03-07] MEDS ORDERED: MIDAZOLAM HCL 2 MG/2 ML SINGLE DOSE VIAL ONE (08:29)
[2024-03-07] MEDS ORDERED: PROPOFOL 40 ML ONE (08:29)
[2024-03-07] MEDS ORDERED: KETOROLAC TROMETHAMINE 30 MG/1 ML VIAL ONE (08:48)
[2024-03-07] MEDS ORDERED: ceFAZolin SODIUM 1 GM VIAL ONE (08:48)
[2024-03-07] MEDS ORDERED: ONDANSETRON 4 MG/2 ML VIAL ONE (08:48)
[2024-03-07] MEDS ORDERED: DEXAMETHASONE SOD PHOSPHATE 4 MG/1 ML VIAL ONE (08:48)
[2024-03-07] MEDS ORDERED: PROPOFOL 20 ML ONE (09:11)
[2024-03-07] MEDS ORDERED: oxyCODONE HCL 5 MG TABLET PO PRN (09:46)
[2024-03-07] MEDS ORDERED: PROMETHAZINE HCL 25 MG/1 ML VIAL IVPB PRN (09:46)
[2024-03-07] MEDS ORDERED: LACTATED RINGERS SOLUTION 1,000 ML IV SCH (10:00)
[2024-03-07] MEDS ORDERED: FENTANYL CITRATE/PF 50 MCG/ML VIAL ONE (10:11)
[2024-03-07 11:36] VITALS: RESP 19; TEMP 96.8
[2024-03-07 11:37] VITALS: BP 140/63; PULSE 68
== END 2024-03-07 11:40 | disposition home or self-care (01) ==
LOC: FASU 06:47
PROVIDERS: ATTEND Orthopaedic Surgery Sports Medicine
PROC: 0SBC4ZZ Excision of Right Knee Joint, Percutaneous Endoscopic Approach (ICD-10-PCS; 2024-03-07)
PROC: 0QBD4ZZ Excision of Right Patella, Percutaneous Endoscopic Approach (ICD-10-PCS; principal; 2024-03-07 09:02)
DX: M93.261 Osteochondritis dissecans, right knee (principal); M94.261 Chondromalacia, right knee
CPT/HCPCS: 94760

== ENCOUNTER 2024-06-01 05:10 | Day surgery (SDC) | payer OTHER ==
[2024-05-26 14:57] VITALS: BMI 33.3
[2024-06-01] MEDS: LIDOCAINE HCL 2% 100 MG/5 ML DISP.SYRIN NR ONE
[2024-06-01] MEDS ORDERED: ACETAMINOPHEN 500 MG TABLET (FP) PO PRN (09:01)
[2024-06-01] MEDS: LIDOCAINE HCL 1% PRESERVATIVE FREE - 30ML VIAL IJ ONE ×2 (10:09)
[2024-06-01] MEDS: LIDOCAINE HCL/PF 2% SDV 5ML VIAL INF ONE ×2 (10:15)
[2024-06-01] MEDS: BUPIVACAINE HCL/PF 0.75% 10 ML VIAL NR ONE ×3 (10:21)
[2024-06-01] MEDS: DEXAMETHASONE SOD PHOSPHATE 10 MG/1 ML VIAL IVPUSH ONE ×2 (10:21)
[2024-06-01 12:43] VITALS: BP 149/75; PULSE 59; RESP 18; TEMP 97.1
== END 2024-06-01 10:45 | disposition home or self-care (01) ==
LOC: JASU-SURG 05:10
PROVIDERS: ATTEND Pain Medicine Pain Medicine
PROC: 015B3ZZ Destruction of Lumbar Nerve, Percutaneous Approach (ICD-10-PCS; principal; 2024-06-01 09:45)
DX: M47.816 Spondylosis without myelopathy or radiculopathy, lumbar region (principal)
CPT/HCPCS: 76000-TC-FY; J1100

== ENCOUNTER 2024-07-07 04:01 | Day surgery (SDC) | payer OTHER ==
[2024-07-06 11:50] VITALS: BMI 33.3
[2024-07-07] MEDS ORDERED: ACETAMINOPHEN 500 MG TABLET (FP) PO PRN (08:59)
[2024-07-07] MEDS: BUPIVACAINE HCL/PF 0.75% 10 ML VIAL NR ONE ×2 (13:30)
[2024-07-07] MEDS: LIDOCAINE HCL 1% PRESERVATIVE FREE - 30ML VIAL IJ ONE ×2 (13:39)
[2024-07-07] MEDS: LIDOCAINE HCL/PF 2% SDV 5ML VIAL INF ONE (13:52)
[2024-07-07] MEDS: DEXAMETHASONE SOD PHOSPHATE 10 MG/1 ML VIAL IM ONE ×2 (13:57)
[2024-07-07 14:29] VITALS: PULSE 64; TEMP 97.5
[2024-07-07 14:31] VITALS: BP 150/70; RESP 18
== END 2024-07-07 14:52 | disposition home or self-care (01) ==
LOC: JASU-SURG 04:01
PROVIDERS: ATTEND Pain Medicine Pain Medicine
PROC: 015B3ZZ Destruction of Lumbar Nerve, Percutaneous Approach (ICD-10-PCS; principal; 2024-07-07 13:15)
DX: M47.816 Spondylosis without myelopathy or radiculopathy, lumbar region (principal)
CPT/HCPCS: 76000-TC-FY; J1100

== ENCOUNTER 2025-01-25 07:04 | Day surgery (SDC) | payer OTHER ==
[2025-01-18 13:25] VITALS: BMI 34.3
[2025-01-25] MEDS ORDERED: ACETAMINOPHEN 500 MG TABLET (FP) PO PRN (09:07)
[2025-01-25] MEDS: IOHEXOL 180 MG/1 ML ML IJ ONE ×2 (09:26)
[2025-01-25] MEDS: LIDOCAINE HCL 1% PRESERVATIVE FREE - 30ML VIAL IJ ONE ×2 (09:26)
[2025-01-25] MEDS: BUPIVACAINE HCL/PF 0.5% (5 MG/ML) 30 ML VIAL IJ ONE ×2 (09:27)
[2025-01-25] MEDS: TRIAMCINOLONE ACET 40MG/1ML VIAL IM ONE ×2 (09:27)
[2025-01-25 09:51] VITALS: BP 140/70; PULSE 60; RESP 18; TEMP 97.7
== END 2025-01-25 11:05 | disposition home or self-care (01) ==
LOC: JASU-SURG 07:04
PROVIDERS: ATTEND Pain Medicine Pain Medicine
PROC: 3E0U3BZ Introduction of Anesthetic Agent into Joints, Percutaneous Approach (ICD-10-PCS; 2025-01-25)
PROC: 3E0U33Z Introduction of Anti-inflammatory into Joints, Percutaneous Approach (ICD-10-PCS; principal; 2025-01-25 10:00)
DX: M53.3 Sacrococcygeal disorders, not elsewhere classified (principal)
CPT/HCPCS: 76000-TC-FY